=== PATIENT | female | born 1950 | race Caucasian/White ===

== ENCOUNTER → 2017-12-27 | Outpatient (CLI) | payer OTHER ==
[~2017-12-27] MED LIST: PERFLUTREN PROTEIN-A MICROSPHR 0.22 MG/ML 3 ML VIAL. IV PRN
--- NOTE | 2017-12-27 12:01 | CARD ---
MR#: [id number] Date of Study: 12/27/2017 Ordering Physician: LETTY FAROOQ, Referring Physician: LETTY FAROOQ, Tech: KRYSTYNA Smith APPROVED REPORT EXAM: Two-dimensional and M-mode echocardiogram with Doppler and color Doppler. Other Information Quality : FairHR: 74bpm Technically limited study due to body habitus. INDICATION Non-ischemic cardiomyopathy 2D DIMENSIONS RVDd2.9 (2.9-3.5cm)Left Atrium(2D)3.0 (1.6-4.0cm) IVSd0.8 (0.7-1.1cm)Aortic Root(2D)2.4 (2.0-3.7cm) LVDd4.7 (3.9-5.9cm)LVOT Diameter1.9 (1.8-2.4cm) PWd0.9 (0.7-1.1cm)IVSs1.0 (0.8-1.2cm) LVDs3.6 (2.5-4.0cm)FS (%) 25.0 % PWs1.2 (0.8-1.2cm)SV49.8 ml LVEF(%)50.0 (>50%) Aortic Valve AoV Peak Burt.150.9cm/sAoV VTI36.2cm AO Peak GR.9.1mmHgLVOT Peak Burt.81.1cm/s LVOT VTI 20.18cmAO Mean GR.5mmHg JASMYNE (VMAX)1.09gr7UNA (VTI)1.66cm2 Mitral Valve MV E Fjrfsxad34.1cm/sMV DECEL DPGH089ev MV A Ahwuwfmw20.6cm/sMV WPS35cf E/A Ratio0.8MVA (PHT)3.55cm2 TDI E/Lateral E'8.0E/Medial E'8.7 Pulmonary Valve PV Peak Jcssporg669.0cm/sPV Peak Grad.5mmHg Tricuspid Valve TR P. Iqirqkxt853pd/sRAP RRRLZERZ3zwFm TR Peak Gr.41tnEeTPDJ89pmFz Pulmonary Vein S1 Pffjluue59.7cm/sD2 Ljstpovf99.0cm/s LEFT VENTRICLE The left ventricle is normal size. There is normal left ventricular wall thickness. Left ventricle sy stolic function is low normal. The Ejection Fraction is 50-55%. Septal motion consistent with pacing. Mild lateral wall hypokinesis. Transmitral Doppler flow pattern is Grade I-abnormal relaxation patte rn. RIGHT VENTRICLE The right ventricle is normal size. The right ventricular systolic function is normal. ATRIA The left atrium size is normal. The right atrium size is normal. The interatrial septum is intact wit h no evidence for an atrial septal defect or patent foramen ovale as noted on 2-D or Doppler imaging. AORTIC VALVE The aortic valve is not well visualized. Doppler and Color Flow revealed no significant aortic regurg itation. There is no significant aortic valvular stenosis. There is no aortic valvular vegetation. MITRAL VALVE The mitral valve is thickened but opens well. There is no evidence of mitral valve prolapse. There is no mitral valve stenosis. Doppler and Color Flow revealed no mitral valve regurgitation noted. TRICUSPID VALVE The tricuspid valve is normal in structure. Doppler and Color Flow revealed mild tricuspid regurgitat ion. There is no pulmonary hypertension. The PA pressure was estimated at 23 mmHg. There is no tricus pid valve prolapse or vegetation. There is no tricuspid valve stenosis. PULMONIC VALVE The pulmonic valve is not well visualized. Doppler and Color Flow revealed no pulmonic valvular regur gitation. There is no pulmonic valvular stenosis. GREAT VESSELS The aortic root is normal in size. The IVC is normal in size and collapses >50% with inspiration. PERICARDIAL EFFUSION There is no pleural effusion. There is no evidence of significant pericardial effusion. Critical Notification Critical Value: No <Conclusion> Left ventricle systolic function is low normal. The Ejection Fraction is 50-55%. Septal motion consistent with pacing. Mild lateral wall hypokinesis. Signed by : Letty Farooq, Electronically Approved : 12/27/2017 12:00:21
== END | disposition home or self-care (01) ==
LOC: ECHO 10:48
PROVIDERS: ATTEND Internal Medicine Cardiovascular Disease
DX: I07.1 Rheumatic tricuspid insufficiency (principal); I42.8 Other cardiomyopathies
CPT/HCPCS: 93306

== ENCOUNTER 2019-01-30 12:48 | Emergency (ER) | payer OTHER ==
[~2019-01-30] VITALS: Ht 170.2 cm; Wt 56.2 kg
[2019-01-30 13:28] VITALS: BP 167/72
--- NOTE | 2019-01-30 14:24 | PHYS DOC ---
Past Medical History Past Medical History: Hypertension, Other Additional Past Medical Histor: cardiomyopathy (ISAI HOPKINS APRN) Past Surgical History: No Surgical History, Cholecystectomy (ISAI HOPKINS APRN) Additional Information: 1/ppd Alcohol Use: Rarely Drug Use: None (ISAI HOPKINS APRN) Adult General Chief Complaint Chief Complaint: BACK PAIN OR INJURY HPI HPI Patient is a 68 year old female with history of hypertension who presents to the ED today complaining of 10 out of 10 sharp intermittent left low back pain nonradiating in nature that began today when she slipped and fell stepping out of the bathtub. Patient denies any pain radiating to bilateral lower extremities. Denies any loss of bowel bladder function. Denies any numbness or tingling to bilateral lower extremities. She states she was able to ambulate after falling and has been pain-free until this afternoon. (ISAI HOPKINS APRN) Review of Systems Review of Systems Constitutional: Denies fever or chills [] GI: Denies abdominal pain, nausea, vomiting, bloody stools or diarrhea [] : Denies dysuria or hematuria [] Musculoskeletal: left low back pain Integument: Denies rash or skin lesions [] Neurologic: Denies headache, focal weakness or sensory changes [] All other systems were reviewed and found to be within normal limits, except as documented in this note. (ISAI HOPKINS APRN) Current Medications Current Medications Current Medications Medications (Trade) Dose Ordered Sig/Carmella Start Time Stop Time Status Last Admin Dose Admin Fentanyl Citrate (Fentanyl 2ml Vial) 50 mcg 1X ONCE 01/30/19 15:15 01/30/19 15:16 DC 01/30/19 15:18 50 MCG Ondansetron HCl (Zofran Odt) 4 mg 1X ONCE 01/30/19 15:45 01/30/19 15:46 DC 01/30/19 15:58 4 MG (TIANA AQUINO MD) Allergies Allergies Allergies Coded Allergies Type Severity Reaction Last Updated Verified codeine Adverse Reaction Intermediate 01/30/19 Yes tramadol Adverse Reaction Intermediate 01/30/19 Yes (TIANA AQUINO MD) Physical Exam Physical Exam Constitutional: Well developed, well nourished, no acute distress, non-toxic appearance. [] Abdomen: Bowel sounds normal, soft, no tenderness, no masses, no pulsatile masses. [] Skin: Warm, dry, no erythema, no rash. [] Back: Diffuse paraspinal muscle tenderness the left lumbar spine, no midline lumbar spine tenderness, no CVA tenderness. [] Extremities: No tenderness, no cyanosis, no clubbing, ROM intact, no edema. [] Neurologic: Alert and oriented X 3, normal motor function, normal sensory function, no focal deficits noted. [] Psychologic: Affect normal, judgement normal, mood normal. [] (ISAI HOPKINS APRN) Current Patient Data Vital Signs Vital Signs Date Time Temp Pulse Resp B/P (MAP) Pulse Ox O2 Delivery O2 Flow Rate FiO2 01/30/19 15:18 Room Air 01/30/19 13:28 97.5 73 18 167/72 (103) 94 97.5 (TIANA AQUINO MD) EKG EKG [] (ISAI HOPKINS APRN) Radiology/Procedures Radiology/Procedures []PROCEDURE: LUMBAR SPINE 2-3V EXAM: AP, lateral and lumbosacral spot views of the lumbar spine DATE: 01/30/2019 1:43 PM INDICATION: Low back pain since the shower COMPARISON: No Prior FINDINGS: For the purposes of this report, there are 5 nonrib-bearing lumbar vertebral bodies. There is approximately 25 percent height loss of the T12 vertebral body, consistent with age-indeterminate fracture. Diffusely decreased bone mineral density. Advanced facet degenerative changes are seen. Mild disc height loss at T12-L1, L1-L2 and L5-S1. Mild straightening of the normal lumbar lordosis. Atherosclerotic vascular calcifications are seen. Right upper quadrant cholecystectomy clips are seen. IMPRESSION: 1. Approximately 25 percent height loss of the T12 vertebral body consistent with age-indeterminate fracture. MRI can be utilized to further age fracture if clinically indicated. Electronically signed by: Marco Oliver MD (01/30/2019 2:42 PM) [facility] DICTATED and SIGNED BY: MARCO OLIVER MD DATE: 01/30/19 1442 PROCEDURE: CT THORACIC SPINE WO CONTRAST EXAM: CT THORACIC SPINE WITHOUT CONTRAST CLINICAL HISTORY:Fall, low back pain COMPARISON: None available. TECHNIQUE: Helical CT of the thoracic spine was performed and axial, coronal and sagittal reformatted images were generated. PQRS compliance statement - One or more of the following individualized dose reduction techniques were utilized for this study: 1. Automated exposure control 2. Adjustment of the mA and/or kV according to patient size 3. Use of iterative reconstruction technique FINDINGS: There is approximately 25 percent height loss of the T12 vertebral body. Lucencies are seen through the vertebral body consistent with likely acute fracture planes. Diffusely decreased bone mineral density. Multilevel Schmorl's nodes are seen. Mild to moderate disc height loss at multiple levels particularly at the mid thoracic spine. No spondylolisthesis. Emphysematous changes are seen. A 4 mm lung nodule seen in the left lower lobe (series 3 image 54). Aortic calcifications are seen. Pacer leads are noted. Right upper pole nonobstructing renal calculi versus vascular calcifications are seen. IMPRESSION: T12 compression fracture, with approximately 25 percent height loss, likely acute given acute appearing fracture planes. EXAM: CT lumbar spine without IV contrast CLINICAL HISTORY:Low back pain, fall COMPARISON: None available. TECHNIQUE: Helical CT was performed through the lumbar spine. Axial, coronal and sagittal reformatted images were generated. PQRS compliance statement - One or more of the following individualized dose reduction techniques were utilized for this study: 1. Automated exposure control 2. Adjustment of the mA and/or kV according to patient size 3. Use of iterative reconstruction technique FINDINGS: T12 compression fracture as described above the thoracic spine section. Marked osteopenia. Vertebral body heights are otherwise preserved. Mild L4-5 disc height loss. Mild to moderate L2-3 disc height loss. No spondylolisthesis. Atherosclerotic vascular calcifications are seen. Suspected nonobstructing right upper pole renal calculus or vascular calcifications. Bladder is markedly distended, only partially visualized. This can be correlated for possible voluntary or involuntary causes of urinary retention. Right adnexal cystic structure is seen, measuring 3 cm. Moderate colonic stool content. IMPRESSION: 1. T12 compression fracture as described above the thoracic spine report. 2. No definite lumbar fracture. 3. Bladder is markedly distended, only partially visualized. This can be correlated for possible voluntary or involuntary causes of urinary retention 4. Suspected nonobstructing right upper pole renal calculus or vascular calcifications, only partially visualized. 5. Right adnexal cystic structure, can be further assessed by pelvic ultrasound as clinically indicated. 6. Moderate colonic stool content Electronically signed by: Marco Oliver MD (01/30/2019 4:09 PM) [facility] (ISAI HOPKINS APRN) Course & Med Decision Making Course & Med Decision Making Pertinent Labs and Imaging studies reviewed. (See chart for details) This is a 68-year-old female patient presents to the ED today with low back pain after slipping and falling in the bathtub. Patient has no cauda equina syndrome symptoms. Lumbar spine x-rays interpreted by radiologist were noted for possible to 12 compression fracture, CT of the lumbar and thoracic spine were obtained, CTs were noted for a T12 compression fracture with approximately 25% height loss. Spoke with Collette RATLIFF for the neurosurgery, she requested we d ischarge patient to home and she can follow-up with Dr. Medina, or PCP or Dr. Nathan. Patient has been able to get up and ambulate in the ED. She was able to go to the bathroom and voided with no issues. She was discharged to home. She was provided return precautions. (ISAI HOPKINS APRN) Dragon Disclaimer Dragon Disclaimer This electronic medical record was generated, in whole or in part, using a voice recognition dictation system. (ISAI HOPKINS APRN) Departure Departure Impression: Primary Impression: T12 compression fracture Additional Impression: Fall Disposition: 01 HOME, SELF-CARE Condition: STABLE Referrals: AWILDA HANSEN MD (PCP) follow up next week STEPHANIE NATHAN MD follow up next week Patient Instructions: Back, Compression Fracture Additional Instructions: You have T12 compression fracture. Take the prescribed pain medicine as needed for pain. Follow-up with your doctor as well as the provided specialist next week. Come back to the ED at any point symptoms worsen. Scripts Ondansetron (ONDANSETRON ODT) 4 Mg Tab.rapdis 1 TAB PO PRN Q6-8HRS, #16 TAB Prov: ISAI HOPKINS APRN 01/30/19 Hydrocodone/Apap 5-325 (NORCO 5-325 TABLET) 1 Each Tablet 1 TAB PO Q6HRS, #20 TAB Prov: ISAI HOPKINS APRN 01/30/19 Attending Signature I have participated in the care of this patient and I have reviewed and agree with all pertinent clinical information above including history, exam, and recommendations. (TIANA AQUINO MD) Problem Qualifiers Primary Impression: T12 compression fracture Encounter type: initial encounter Qualified Codes: S22.080A - Wedge compression fracture of t11-T12 vertebra, initial encounter for closed fracture Additional Impression: Fall Encounter type: initial encounter Qualified Codes: W19.XXXA - Unspecified fall, initial encounter ISAI HOPKINS APRN Jan 30, 2019 14:24 TIANA AQUINO MD Jan 30, 2019 17:59
--- NOTE | 2019-01-30 14:44 | RAD ---
EXAM: AP, lateral and lumbosacral spot views of the lumbar spine DATE: 01/30/2019 1:43 PM INDICATION: Low back pain since the shower COMPARISON: No Prior FINDINGS: For the purposes of this report, there are 5 nonrib-bearing lumbar vertebral bodies. There is approximately 25 percent height loss of the T12 vertebral body, consistent with age-indeterminate fracture. Diffusely decreased bone mineral density. Advanced facet degenerative changes are seen. Mild disc height loss at T12-L1, L1-L2 and L5-S1. Mild straightening of the normal lumbar lordosis. Atherosclerotic vascular calcifications are seen. Right upper quadrant cholecystectomy clips are seen. IMPRESSION: 1. Approximately 25 percent height loss of the T12 vertebral body consistent with age-indeterminate fracture. MRI can be utilized to further age fracture if clinically indicated. Electronically signed by: Marco Umaña MD (01/30/2019 2:42 PM) [facility]
[2019-01-30] MEDS ORDERED: fentaNYL PF VIAL 100 MCG/2 ML VIAL IM ONE (15:15)
[2019-01-30] MEDS ORDERED: ONDANSETRON ODT 4 MG TAB.RAPDIS. PO ONE (15:45)
--- NOTE | 2019-01-30 16:12 | RAD ---
EXAM: CT THORACIC SPINE WITHOUT CONTRAST CLINICAL HISTORY:Fall, low back pain COMPARISON: None available. TECHNIQUE: Helical CT of the thoracic spine was performed and axial, coronal and sagittal reformatted images were generated. PQRS compliance statement - One or more of the following individualized dose reduction techniques were utilized for this study: 1. Automated exposure control 2. Adjustment of the mA and/or kV according to patient size 3. Use of iterative reconstruction technique FINDINGS: There is approximately 25 percent height loss of the T12 vertebral body. Lucencies are seen through the vertebral body consistent with likely acute fracture planes. Diffusely decreased bone mineral density. Multilevel Schmorl's nodes are seen. Mild to moderate disc height loss at multiple levels particularly at the mid thoracic spine. No spondylolisthesis. Emphysematous changes are seen. A 4 mm lung nodule seen in the left lower lobe (series 3 image 54). Aortic calcifications are seen. Pacer leads are noted. Right upper pole nonobstructing renal calculi versus vascular calcifications are seen. IMPRESSION: T12 compression fracture, with approximately 25 percent height loss, likely acute given acute appearing fracture planes. EXAM: CT lumbar spine without IV contrast CLINICAL HISTORY:Low back pain, fall COMPARISON: None available. TECHNIQUE: Helical CT was performed through the lumbar spine. Axial, coronal and sagittal reformatted images were generated. PQRS compliance statement - One or more of the following individualized dose reduction techniques were utilized for this study: 1. Automated exposure control 2. Adjustment of the mA and/or kV according to patient size 3. Use of iterative reconstruction technique FINDINGS: T12 compression fracture as described above the thoracic spine section. Marked osteopenia. Vertebral body heights are otherwise preserved. Mild L4-5 disc height loss. Mild to moderate L2-3 disc height loss. No spondylolisthesis. Atherosclerotic vascular calcifications are seen. Suspected nonobstructing right upper pole renal calculus or vascular calcifications. Bladder is markedly distended, only partially visualized. This can be correlated for possible voluntary or involuntary causes of urinary retention. Right adnexal cystic structure is seen, measuring 3 cm. Moderate colonic stool content. IMPRESSION: 1. T12 compression fracture as described above the thoracic spine report. 2. No definite lumbar fracture. 3. Bladder is markedly distended, only partially visualized. This can be correlated for possible voluntary or involuntary causes of urinary retention 4. Suspected nonobstructing right upper pole renal calculus or vascular calcifications, only partially visualized. 5. Right adnexal cystic structure, can be further assessed by pelvic ultrasound as clinically indicated. 6. Moderate colonic stool content Electronically signed by: Marco Umaña MD (01/30/2019 4:09 PM) [facility]
[2019-01-30] MEDS ORDERED: HYDR-3164 PO (17:05)
[2019-01-30] MEDS ORDERED: ONDA4TAB12 PO (17:05)
== END 2019-01-30 17:09 | disposition home or self-care (01) ==
LOC: ER 12:48
DX: S22.080A Wedge compression fracture of T11-T12 vertebra, initial encounter for closed fracture (principal); I10 Essential (primary) hypertension; F17.200 Nicotine dependence, unspecified, uncomplicated; Z90.49 Acquired absence of other specified parts of digestive tract; Z88.5 Allergy status to narcotic agent; W18.2XXA Fall in (into) shower or empty bathtub, initial encounter; Y93.89 Activity, other specified; Y92.89 Other specified places as the place of occurrence of the external cause; Y99.8 Other external cause status
CPT/HCPCS: 72100; 72128; 72131; 96372; 99284; J3010; Q0162; 99285

== ENCOUNTER → 2019-04-20 | Outpatient (CLI) | payer OTHER ==
[~2019-04-20] MED LIST changes: +HYDR-3164 PO; +ONDA4TAB12 PO; -PERFLUTREN PROTEIN-A MICROSPHR 0.22 MG/ML 3 ML VIAL. IV PRN
--- NOTE | 2019-04-20 17:37 | RAD ---
CT THORACIC SPINE WO CONTRAST, CT LUMBAR SPINE WO CONTRAST Date: 04/20/2019 10:30 AM Indication: Midline back pain Comparison: 01/30/2019. Technique: Helical CT images of the thoracic and lumbar spine were obtained without contrast. Coronal and sagittal reformatted images were also performed. One or more of the following dose reduction techniques were utilized: Automated exposure control (AEC), Adjustment of mA and/or kV according to patient size, Use of iterative reconstruction technique such as ASiR, CT scan done according to ALARA and image gently/image wisely. Findings: T12 compression deformity with 80% loss of vertebral body height and changes of interval vertebral augmentation. Osseous retropulsion with mild to moderate spinal canal narrowing. No new compression deformities. No new compression deformities. Focal kyphosis centered at T12. Mild to moderate multilevel degenerative disc space height loss. Multilevel mild to moderate spinal canal stenosis secondary to multilevel disc bulging and facet arthrosis. Multilevel mild and moderate neuroforaminal narrowing. Multilevel mild and moderate facet arthrosis. Diffuse aortoiliac atherosclerotic disease. IMPRESSION: T12 compression deformity with progressive height loss and changes of interval vertebral augmentation. No new compression deformities. Electronically signed by: Angel Barlow MD (04/20/2019 5:34 PM) [facility]
== END | disposition home or self-care (01) ==
LOC: CT 10:12
PROVIDERS: ATTEND Internal Medicine
DX: M51.24 Other intervertebral disc displacement, thoracic region (principal); M47.814 Spondylosis without myelopathy or radiculopathy, thoracic region; M48.04 Spinal stenosis, thoracic region; M40.294 Other kyphosis, thoracic region; I70.8 Atherosclerosis of other arteries
CPT/HCPCS: 72128; 72131

== ENCOUNTER → 2019-06-08 | Outpatient (CLI) | payer MEDICARE, OTHER ==
--- NOTE | 2019-06-08 13:35 | RAD ---
Limited bone scan over the abdomen and pelvis compared to CT scan of the lumbar spine dated April 20, 2019 for history of vertebroplasty in January 2019, low back pain since then. TECHNIQUE AND FINDINGS: Following administration of 25 mCi of technetium 99 MDP, planar anterior posterior and right and left lateral images of the axial skeleton centered on the thoracal lumbar junction are obtained. There is avid radiotracer accumulation in the right and left lateral aspects posteriorly at the level of T12. This may reflect facet arthrosis or fractures involving the pedicles. No vertebral body accumulation is identified to suggest recurrent or acute vertebral body compression fracture. No other suspicious areas of radiotracer activity are identified. There is a focal region of photopenia in the left anterior chest at the level of the pacemaker. There is normal soft tissue distribution of radiotracer. IMPRESSION: 1. Abnormal activity in the posterior lateral aspects of the T12 level. This may reflect activity associated with acute or unhealed fractures at or near the bilateral T12 pedicles, but could also be seen with advanced facet arthrosis. Given the absence of facet arthrosis at other levels, and a history of prior vertebral body fracture at this level however, the former is favored. Electronically signed by: Zach Mcleod MD (06/08/2019 1:32 PM) [facility]
== END | disposition home or self-care (01) ==
LOC: NM 09:01
PROVIDERS: ATTEND Neurological Surgery
DX: M54.5 Low back pain (principal); Z95.0 Presence of cardiac pacemaker
CPT/HCPCS: 78300; A9503

== ENCOUNTER → 2019-06-23 | Outpatient (CLI) | payer MEDICARE ==
[~2019-06-23] MED LIST changes: +AMLO10TA8 PO; +ASPI81TA59 PO; +BUPIVACAINE MPF 0.25% 10 ML VIAL. ONE; +CALC500T54 PO; +CARV25TA2 PO; +CETI10TA24 PO; +CHOL400T14 PO; +CYCL5TAB PO; +HYDR-2869 PO; +LOSA100T14 PO; +OMEG1CAP27 PO; +SIMV40TA18 PO; +methylPREDNISolone ACETATE 40 MG/ML VIAL. ONE; +presservision EACHEYE; +prevagen PO
--- NOTE | 2019-06-24 00:55 | PAIN ---
DATE OF SERVICE: 06/23/2019 INITIAL CONSULTATION FOR PAIN CLINIC CHIEF COMPLAINT: Low back pain. HISTORY OF PRESENT ILLNESS: This is a 69-year-old female who presents with history of pain in the low back, especially on the right side, but present bilaterally since a fall in 01/2019. The patient reports she tripped and fell, did not have to assess any significant back pain prior to that. She has been going through some therapy, did some stretching and strength exercises, which were not significantly helpful, eventually was referred to Neurosurgery with a limited bone scan performed of the low back and a CT scan showing facet arthropathy of the lower lumbar spine with good alignment. Bone scan showing no abnormal uptake other than some unhealed acute fractures near the bilateral T12 pedicles, but could be facet arthrosis. The patient reports significant pain with walking, standing, changing positions, better with sitting or lying down, does not awaken her from sleep at night. She sleeps well, does not disturb her, but when she is walking or standing for more than about 10-15 minutes, the pain becomes significantly worse. She finds herself hunching forward and leaning over grocery carts and holding on to her when she is ambulating. The patient reports it does not affect her bowel or bladder control, but does affect her ability to walk, however, but she is not using any assistive devices to hold on to besides her . The patient rates her disability from 0-10, 10 being worst, is a 10 in all categories, family home responsibilities, recreation, occupation, social activity, sexual behavior, self-care and life support activities. The patient has been taking cyclobenzaprine, which does decrease the pain, she states once in the morning, sometimes twice a day, does not cause any drowsiness and she is doing quite a bit better with that, but still having significant pain with ambulation. The patient describes the pain as constant, sharp, stabbing, throbbing across the low back, worse with extension of the lumbar spine, better with forward flexion and worse with right and left lateral rotation or repetitive motions, lifting or bending, stooping, and getting up from a seated position can be uncomfortable as well. PAST MEDICAL HISTORY: Significant for cardiomyopathy, osteoporosis, cigarette smoking, still smokes 1 pack a day for the past 40 years. PREVIOUS SURGERIES: Include cholecystectomy and pacemaker placement in 2008 and battery changed in 2013. CURRENT MEDICATIONS: Include Prevagen, eyedrops, fish oil, vitamin D, daily baby aspirin, calcium, simvastatin, amlodipine, Zyrtec, losartan, cyclobenzaprine, carvedilol and hydralazine. ALLERGIES: THE PATIENT IS ALLERGIC TO TRAMADOL, CODEINE, AND PENICILLIN. FAMILY HISTORY: Significant for no major medical problems or conditions that she lists. SOCIAL HISTORY: The patient drinks about 2 alcoholic beers a month on average. Does not use any illegal, illicit or recreational drugs, does smoke 1 pack of cigarettes, has for the past 40 years. She is and lives with her spouse, lives locally in [place], [place]. Reports she is currently retired. REVIEW OF SYSTEMS: The patient's review of systems is positive for those items mentioned in history of present illness. All systems reviewed and otherwise negative. It is complete, full and well documented on the patient's chart. PHYSICAL EXAMINATION: VITAL SIGNS: The patient's blood pressure is 124/61, pulse 74, respirations 18, temperature 98.2 degrees Fahrenheit. Height is 5 feet 7 inches, weighs 116 pounds. GENERAL: The patient is awake, alert, oriented, appropriate, very pleasant demeanor. HEENT: Head shows normocephalic, atraumatic. Extraocular movements are intact and symmetrical. Oral cavity: Mucous membranes moist and pink. Dentition is intact. NECK: Shows anterior throat supple without palpable lymphadenopathy noted. Swallow reflex symmetrical. CHEST: Shows normal on inspection. Breath sounds are clear bilaterally. HEART: Shows S1, S2 clear. No murmurs auscultated. ABDOMEN: Soft, nontender, nondistended. No palpable organomegaly is noted. No rebound or guarding demonstrated. BACK: Shows spine grossly in the midline. Normal appearing thoracic kyphosis and some minor flattening of lumbar lordotic curvature. Lumbar paraspinous muscle shows symmetrical on inspection, on palpation shows some moderate tenderness diffusely bilaterally, but only diffusely without significant radiation. The patient has good rotational motion of lumbar spine, but with significant tenderness, somewhat greater right than the left rotation with lumbar spine. There is significant tenderness across both right and left low back with extension of the lumbar spine and axial loading of the lumbar spine. This is much better with forward flexion at 45 degrees, which decreases the pain and almost relieved it completely. EXTREMITIES: The patient's lower extremities show deep tendon reflexes at 2+ in the patellar, 1+ tendo-calcaneus tendons. Motor exam is strong with 5/5 dorsiflexion, extension, quadriceps and hamstring flexion is symmetrical. Peripheral pulses are 1+ posterior tibia. No peripheral edema is noted bilaterally. The patient's lower extremities are warm and dry to touch, equal in color and appearance. Peripheral pulses are with 1+ posterior tibia. No peripheral edema is noted. They are warm and dry, equal color and appearance. Straight leg raising noted to be negative for reproduction of radicular symptoms. Gaenslen's and Ashok's maneuvers are negative bilaterally as well. The patient is able to stand, stand on her toes without significant difficulty or loss of balance, is walking with a significant shuffling gait, appears to favor the right lower extremity compared to the left. Again, not using any assistive devices to ambulate. SKIN: Shows warm and dry, good turgor. No edema. No sores, rashes or bruising throughout. The patient does have some mottled change; however, on the skin over the lumbar spine from previous heating pad use. IMPRESSION: 1. This is a 69-year-old female with approximate 5-month history status post fall with pain in the low back, right greater than left, consistent with facet arthrosis, facet syndrome and facetmediated pain. 2. Cigarette smoking. 3. Osteoporosis. 4. History of cardiomyopathy with pacemaker placement. PLAN: Options were discussed with the patient including conservative medical managements, physical therapies and interventional techniques. She is still doing the physical therapy exercises with and she is interested in interventional techniques. We discussed lumbar facet injection as well as trigger point injections. We will proceed with trigger point injection today, have patient preauthorized for facet joint injections per her insurance provider as she does have significant axial pain and axial loading pain with extension of the lumbar spine bilaterally in the low back, but without radiation to the lower extremities. Today, we will plan on lumbar paraspinous musculature trigger point injections as he has very firm rope-like musculature in both the right and left lumbar paraspinous musculature throughout the upper, middle and lower distribution. Risks were discussed including but not limited to bleeding, infection, possibility of intravascular injection sequelae, spread of local anesthetic and numbness, side effects of steroid medication and poor results regarding pain control. The patient understands and wished to proceed. The patient will return to clinic again after preauthorization for bilateral L4-L5 and L5-S1 facet joint injections. DIAGNOSIS: Lumbar and lumbosacral spondylosis with myofascial pain. PROCEDURE: Trigger point injections, bilateral lumbar paraspinous musculature, upper, middle and lower distribution under sterile prep and drape using local anesthetic. MEDICATION INJECTED: A total of 40 mg Depo-Medrol plus a total of 8 mL of 0.25% bupivacaine after negative aspiration at each injection site. CONDITION AT DISCHARGE: Stable. The patient tolerated the procedure well, had no complications. IGOR SÁNCHEZ MD DR: JORGE/vinod JOB#: [id number] / [id number] AWILDA Ty MD
== END ==
LOC: PNCL 13:39
PROVIDERS: ATTEND Anesthesiology
DX: M79.18 Myalgia, other site (principal); M47.817 Spondylosis without myelopathy or radiculopathy, lumbosacral region; F17.210 Nicotine dependence, cigarettes, uncomplicated; Z87.39 Personal history of other diseases of the musculoskeletal system and connective tissue; Z90.49 Acquired absence of other specified parts of digestive tract; Z95.0 Presence of cardiac pacemaker; Z72.89 Other problems related to lifestyle
CPT/HCPCS: 20553; J1030; J3490

== ENCOUNTER → 2019-07-06 | Outpatient (CLI) | payer MEDICARE ==
[~2019-07-06] MED LIST changes: +IOHEXOL 180 MG/ML 10 ML VIAL. ONE; +methylPREDNISolone ACETATE 80 MG/ML VIAL. ONE
--- NOTE | 2019-07-06 13:12 | PAIN ---
DATE OF SERVICE: 07/06/2019 PROGRESS NOTE FOR PAIN CLINIC DIAGNOSES: 1. Lumbar and lumbosacral spondylosis. 2. Myofascial pain. HISTORY OF PRESENT ILLNESS: The patient is a 69-year-old female who returns for followup status post trigger point injections after initial evaluation and preauthorization for bilateral lumbar facet joint injections. The patient reports still significant pain in the low back with walking, standing, and changing positions, especially getting up from a seated position and extension of the lumbar spine arching the back. The patient reports it is a 9 on a scale of 10 at all times over the past week, 9 on average, worst, and least, and is a 9 today. The patient reports it is aching and sharp across the low back without radiation to lower extremities. The patient reports it is better with sitting or lying down, but when she goes to change positions, the pain returns significantly. The patient reports it does not awaken her from sleep. She is sleeping well at night. No new motor or sensory deficits. No new bowel or bladder incontinence. PHYSICAL EXAMINATION: VITAL SIGNS: The patient's blood pressure is 146/72, pulse 73, respirations 16, temperature is 97.4 degrees Fahrenheit, height is 63 inches, and weight is 114 pounds. GENERAL: The patient is awake, alert, oriented, and appropriate. Very pleasant demeanor. HEENT: Head is normocephalic and atraumatic. Extraocular movements are intact and symmetrical. Oral cavity, mucous membranes are moist and pink. Dentition is intact. NECK: Anterior throat supple without palpable lymphadenopathy noted. Swallow reflex symmetrical. CHEST: Normal on inspection. Breath sounds are clear bilaterally. HEART: S1, S2 clear. No murmurs auscultated. ABDOMEN: Soft, nontender, and nondistended. BACK: Spine grossly in the midline, slight exaggerated thoracic kyphosis, and minor flattening of lumbar lordotic curvature. Lumbar paraspinous muscle shows symmetrical on inspection and with palpation shows some moderate tenderness diffusely throughout the middle and lower distribution of paraspinous muscles bilaterally. The patient also has some discoloration from heating pad use on the skin as well. The patient shows good rotational motion with significant pain with right and left lateral rotation past 10 degrees and extension to 10 degrees. Very significant pain across the low back without radiation, this is better but not completely relieved with forward flexion at 45 degrees. EXTREMITIES: Lower extremities show deep tendon reflexes at 2+ in the patellar and 1+ tendo-calcaneus tendons. Motor exam is strong with 5/5 dorsiflexion, extension, and equal. Peripheral pulses are 1+ posterior tibia. No peripheral edema is noted bilaterally. Options were discussed with the patient. The patient's old chart was reviewed. Her current medication regimen updated. Current review of systems updated today as well. We will proceed with bilateral L4-L5 and L5-S1 facet joint injections today with fluoroscopic guidance. Risks were again discussed including but not limited to bleeding, infection, possibility of epidural hematoma, subsequent neurological compromise, dural puncture, headaches, spinal cord and/or nerve damage, side effects of steroid medication, and poor results regarding pain control. The patient understands and wished to proceed. The patient will return to clinic in approximately 2 weeks for followup. She was counseled on return appointment, activity level, and side effects to be aware of. DIAGNOSIS: Lumbar and lumbosacral spondylosis. PROCEDURE: Bilateral L4-L5 and L5-S1 facet joint injections using C-arm fluoroscopic guidance under sterile prep and drape using local anesthetic. MEDICATIONS INJECTED: A total of 120 mg of Depo-Medrol plus 4 mL of 0.25% bupivacaine and 2 mL total of contrast. CONDITION AT DISCHARGE: Stable. The patient tolerated procedure well and had no complications. IGOR SÁNCHEZ MD DR: JORGE/vinod JOB#: [id number] / [id number]
== END ==
LOC: PNCL 11:49
PROVIDERS: ATTEND Anesthesiology
DX: M47.817 Spondylosis without myelopathy or radiculopathy, lumbosacral region (principal); M79.18 Myalgia, other site
CPT/HCPCS: 64635; 64636; J1030; J1040; J3490; Q9965

== ENCOUNTER → 2019-12-18 | Outpatient (CLI) | payer MEDICARE ==
[~2019-12-18] MED LIST changes: -BUPIVACAINE MPF 0.25% 10 ML VIAL. ONE; -IOHEXOL 180 MG/ML 10 ML VIAL. ONE; -methylPREDNISolone ACETATE 40 MG/ML VIAL. ONE; -methylPREDNISolone ACETATE 80 MG/ML VIAL. ONE
--- NOTE | 2019-12-18 11:11 | CARD ---
MR#: [id number] Date of Study: 12/18/2019 Ordering Physician: LETTY FAROOQ, Referring Physician: LETTY FAROOQ, Tech: Claudia MARTINEZ [facility] APPROVED REPORT EXAM: Two-dimensional and M-mode echocardiogram with Doppler and color Doppler. Other Information Quality : AverageHR: 70bpm Rhythm : NSR INDICATION COPD RISK FACTORS Smoking 2D DIMENSIONS RVDd2.6 (2.9-3.5cm)Left Atrium(2D)2.4 (1.6-4.0cm) IVSd0.9 (0.7-1.1cm)Aortic Root(2D)3.1 (2.0-3.7cm) LVDd4.0 (3.9-5.9cm)LVOT Diameter1.8 (1.8-2.4cm) PWd0.9 (0.7-1.1cm)LVDs3.0 (2.5-4.0cm) FS (%) 26.5 %SV37.4 ml LVEF(%)52.3 (>50%) Aortic Valve AoV Peak Burt.117.1cm/sAoV VTI22.8cm AO Peak GR.5.5mmHgLVOT Peak Burt.83.7cm/s AO Mean GR.2mmHgAVA (VMAX)1.87cm2 Mitral Valve MV E Kvaueshs65.8cm/sMV DECEL [id number] MV A Ypoefnav38.9cm/sE/A Ratio0.5 Tricuspid Valve TR P. Gvkbsraw131nk/sTR Peak Gr.25mmHg Pulmonary Vein S1 Djpmswrt69.1cm/sD2 Grizmnnx71.0cm/s PVa [id number] LEFT VENTRICLE The left ventricle is normal size. There is normal left ventricular wall thickness. The left ventricu lar systolic function is normal. The ejection fraction is 55%. There is normal LV segmental wall lang on. The left ventricular diastolic function and filling is normal for age. RIGHT VENTRICLE The right ventricle is normal size. There is normal right ventricular wall thickness. The right ventr icular systolic function is normal. ATRIA The left atrium size is normal. The right atrium size is normal. The interatrial septum is intact wit h no evidence for an atrial septal defect or patent foramen ovale as noted on 2-D or Doppler imaging. AORTIC VALVE The aortic valve is normal in structure and function. Doppler and Color Flow revealed no significant aortic regurgitation. There is no significant aortic valvular stenosis. MITRAL VALVE The mitral valve is normal in structure and function. There is no evidence of mitral valve prolapse. There is no mitral valve stenosis. Doppler and Color Flow revealed no mitral valve regurgitation note d. TRICUSPID VALVE The tricuspid valve is normal in structure and function. Doppler and Color Flow revealed trace tricus pid regurgitation. Estimated PAP 28-30mmHg. PULMONIC VALVE The pulmonary valve is normal in structure and function. Doppler and Color Flow revealed no pulmonic valvular regurgitation. GREAT VESSELS The aortic root is normal in size. The ascending aorta is normal in size. The IVC is normal in size a nd collapses >50% with inspiration. PERICARDIAL EFFUSION There is no evidence of significant pericardial effusion. Critical Notification Critical Value: No <Conclusion> The left ventricular systolic function is normal. The ejection fraction is 55%. There is normal LV segmental wall motion. Trace tricuspid regurgitation with estimated PAP 28-30mmHg. There is no evidence of significant pericardial effusion. Signed by : Dave Castaneda, Electronically Approved : 12/18/2019 11:10:43
== END ==
LOC: ECHO 08:50
PROVIDERS: ATTEND Internal Medicine Cardiovascular Disease
DX: I25.10 Atherosclerotic heart disease of native coronary artery without angina pectoris (principal); R09.89 Other specified symptoms and signs involving the circulatory and respiratory systems
CPT/HCPCS: 93306

== ENCOUNTER → 2020-01-04 | Outpatient (CLI) | payer MEDICARE ==
[~2020-01-04] MED LIST changes: -CETI10TA24 PO; +CETI10TA74 PO
--- NOTE | 2020-01-04 18:04 | RAD ---
MR#: [id number] Date of Study: 01/04/2020 Ordering Physician: LETTY FAROOQ, Referring Physician: LETTY FAROOQ, Tech: Lester Zamora MBA, RDMS, RVT, RDCS, RTR APPROVED REPORT Patient Location: OUT-PATIENT Laterality:Bilateral Indications Bruit Doppler Spectral Velocity Analysis Right Left pCCA 52/9 cm/spCCA 75/13 cm/s mCCA 53/11 cm/smCCA 79/12 cm/s dCCA 49/9 cm/sdCCA 75/15 cm/s Bulb 56/9 cm/sBulb 81/13 cm/s ECA 384/ cm/sECA 510/ cm/s pICA 89/14 cm/spICA 75/12 cm/s Donna 84/12 cm/smICA 86/16 cm/s dICA 96/14 cm/sdICA 94/13 cm/s Vert. 76/ cm/sVert. 49/ cm/s Subcl. 177/ cm/sSubcl. 152/ cm/s ICA/CCA 1.81ICA/CCA 1.25 Findings Grayscale images of the bilateral carotid vessels demonstrates heavy plaque burden at the level of th e carotid bifurcation. Spectral waveforms and color Doppler of the internal carotid artery and commo n carotid artery demonstrate less than 50% stenosis based on velocity criteria. There is likely grea ter then 70% stenosis involving the external carotid arteries bilaterally. No significant vertebral disease is noted. Critical Notification Critical Value: No <Conclusion> 1. No significant internal carotid occlusive disease noted. 2. Bilateral external carotid disease. Signed by : Letty Farooq, Electronically Approved : 01/04/2020 18:04:12
== END | disposition home or self-care (01) ==
LOC: US 10:09
PROVIDERS: ATTEND Internal Medicine Cardiovascular Disease
DX: I65.23 Occlusion and stenosis of bilateral carotid arteries (principal); R09.89 Other specified symptoms and signs involving the circulatory and respiratory systems
CPT/HCPCS: 93880

== ENCOUNTER → 2021-03-21 | Outpatient (CLI) | payer MEDICARE ==
[~2021-03-21] MED LIST changes: +AMLO-187 PO; -AMLO10TA8 PO
[2021-03-21 11:40] LABS: BASO % 1 % (0-3); EOS # 0.1 x10^3/uL (0.0-0.7); EOS % 2 % (0-3); HEMATOCRIT 45.3 % (36.0-47.0); HEMOGLOBIN 15.3 g/dL (12.0-15.5); LYMPH # 2.2 x10^3/uL (1.0-4.8); LYMPH % 29 % (24-48); MEAN CORPUSCULAR HEMOGLOBIN 33 pg (25-35); MEAN CORPUSCULAR HGB CONC 34 g/dL (31-37); MEAN CORPUSCULAR VOLUME 98 fL (79-100); MONO # 0.6 x10^3/uL (0.0-1.1); MONO % 8 % (0-9); NEUT # 4.7 x10^3/uL (1.8-7.7); NEUT % 61 % (31-73); PLATELET COUNT 256 x10^3/uL (140-400); RED BLOOD COUNT 4.63 x10^6/uL (3.50-5.40); RED CELL DISTRIBUTION WIDTH 13.8 % (11.5-14.5); WHITE BLOOD COUNT 7.7 x10^3/uL (4.0-11.0)
[2021-03-21 11:58] LABS: ALBUMIN 4.1 g/dL (3.4-5.0); ALBUMIN/GLOBULIN RATIO 1.1 (1.0-1.7); CALCIUM 9.7 mg/dL (8.5-10.1); CREATININE 0.9 mg/dL (0.6-1.0); GFR 61.4; POTASSIUM 4.1 mmol/L (3.5-5.1); TOTAL BILIRUBIN 0.6 mg/dL (0.2-1.0); TOTAL PROTEIN 7.8 g/dL (6.4-8.2)
[2021-03-21 11:59] LABS: CHOLESTEROL/HDL RATIO 2.4
--- NOTE | 2021-03-21 16:50 | RAD ---
MR#: [id number] Date of Study: 03/21/2021 Ordering Physician: LETTY FAROOQ, Referring Physician: LETTY FAROOQ, Tech: Charlene Caldwell RDMS, RVT, RTR APPROVED REPORT Patient Location: OUT-PATIENT Laterality:Bilateral Indications Bruit Doppler Spectral Velocity Analysis Right Left pCCA 53/9 cm/spCCA 71/13 cm/s mCCA 46/9 cm/smCCA 62/13 cm/s dCCA 60/13 cm/sdCCA 64/15 cm/s ECA 420/34 cm/sECA 685/65 cm/s pICA 102/22 cm/spICA 86/18 cm/s Donna 113/18 cm/smICA 98/20 cm/s dICA 134/27 cm/sdICA 79/14 cm/s Vert. 89/14 cm/sVert. 62/14 cm/s ICA/CCA 2.90ICA/CCA 1.50 Findings Grayscale images of the bilateral carotid vessels demonstrates moderate to severe diffuse atheroscler osis. On the right side there is likely moderate 50 to 69% stenosis based on velocity criteria and ICA to C CA ratios. The vertebral velocities are within normal limits and antegrade. There is likely greater than 70% stenosis involving the external carotid artery. On the left side overall 0 to less than 50% stenosis involving the internal carotid artery. Normal I CA to CCA ratios and antegrade vertebral velocities. Greater than 70% stenosis involving the left ex ternal carotid artery. Critical Notification Critical Value: No <Conclusion> 1. Moderate to severe diffuse atherosclerotic plaque with moderate 50 to 69% stenosis on the right a nd less than 50% stenosis on the left involving the bilateral internal carotid arteries. 2. Severe greater than 70% stenosis involving the bilateral external carotid arteries. Signed by : Letty Farooq, Electronically Approved : 03/21/2021 16:49:30
--- NOTE | 2021-03-22 13:21 | CARD ---
MR#: [id number] Date of Study: 03/21/2021 Ordering Physician: LETTY FAROOQ, Referring Physician: LETTY FAROOQ, Tech: Ev Stout [facility] APPROVED REPORT EXAM: Two-dimensional and M-mode echocardiogram with Doppler and color Doppler. Other Information Quality : AverageHR: 68bpm Rhythm : NSR INDICATION COPD RISK FACTORS Smoking 2D DIMENSIONS Left Atrium(2D)2.5 (1.6-4.0cm)IVSd0.9 (0.7-1.1cm) Aortic Root(2D)2.9 (2.0-3.7cm)LVDd4.1 (3.9-5.9cm) LVOT Diameter1.9 (1.8-2.4cm)PWd0.8 (0.7-1.1cm) LVDs3.4 (2.5-4.0cm)FS (%) 17.5 % SV28.0 ml Aortic Valve AoV Peak Burt.114.6cm/sAoV VTI25.8cm AO Peak GR.5.3mmHgLVOT Peak Burt.81.8cm/s AO Mean GR.3mmHgAVA (VMAX)2.10cm2 Pulmonary Valve PV Peak Ldbjjxmu68.2cm/s Tricuspid Valve TR P. Dyzygwid577ub/sTR Peak Gr.32mmHg LEFT VENTRICLE The left ventricle is normal size. There is normal left ventricular wall thickness. The left ventricu lar systolic function is mildly decreased. LV ejection fraction of 40 to 45%. There is mild global h ypokinesis of the left ventricle. Transmitral Doppler flow pattern is Grade I-abnormal relaxation pat tern. RIGHT VENTRICLE The right ventricle is normal size. There is normal right ventricular wall thickness. The right ventr icular systolic function is normal. ATRIA The left atrium size is normal. The right atrium size is normal. The interatrial septum is intact wit h no evidence for an atrial septal defect or patent foramen ovale as noted on 2-D or Doppler imaging. AORTIC VALVE The aortic valve is normal in structure and function. Doppler and Color Flow revealed no significant aortic regurgitation. There is no significant aortic valvular stenosis. MITRAL VALVE The mitral valve is normal in structure and function. There is no evidence of mitral valve prolapse. There is no mitral valve stenosis. Doppler and Color-flow revealed trace mitral regurgitation. TRICUSPID VALVE The tricuspid valve is normal in structure and function. Doppler and Color Flow revealed mild tricusp id regurgitation. Estimated PAP of 34 mmHg. There is no tricuspid valve stenosis. PULMONIC VALVE The pulmonary valve is normal in structure and function. Doppler and Color Flow revealed no pulmonic valvular regurgitation. GREAT VESSELS The aortic root is normal in size. The ascending aorta is normal in size. The IVC is normal in size a nd collapses >50% with inspiration. PERICARDIAL EFFUSION There is no evidence of significant pericardial effusion. Critical Notification Critical Value: No <Conclusion> The left ventricle is normal size. The left ventricular systolic function is mildly decreased. LV ejection fraction of 40 to 45%. There is mild global hypokinesis of the left ventricle. Doppler and Color Flow revealed no significant aortic regurgitation. There is no significant aortic valvular stenosis. Doppler and Color-flow revealed trace mitral regurgitation. Doppler and Color Flow revealed mild tricuspid regurgitation. Estimated PAP of 34 mmHg. Signed by : Burton Leyva MD Electronically Approved : 03/22/2021 13:21:17
== END ==
LOC: ECHO 09:58
PROVIDERS: ATTEND Internal Medicine Cardiovascular Disease
DX: I07.1 Rheumatic tricuspid insufficiency (principal); I65.23 Occlusion and stenosis of bilateral carotid arteries; I25.10 Atherosclerotic heart disease of native coronary artery without angina pectoris; R09.89 Other specified symptoms and signs involving the circulatory and respiratory systems; J44.9 Chronic obstructive pulmonary disease, unspecified
CPT/HCPCS: 36415; 80053; 80061; 85025; 93306; 93880

== ENCOUNTER → 2021-04-13 | Outpatient (CLI) | payer MEDICARE ==
[~2021-04-13] MED LIST changes: +DONE5TAB7 PO
--- NOTE | 2021-04-13 10:04 | PDOC ---
Progress Note - Pain Clinic Date of Service: DOS: DATE: 04/13/21 TIME: 10:00 Diagnosis: Dx: Lumbar and lumbosacral spondylosis Myofascial pain History or Present Illness: HPI: 71-year-old female returns last seen June 2019 patient underwent lumbar facet medial branch blocks with about 90% improvement for the first 2 to 3 weeks but patient is having a hard time remembering if it came back quickly or what it did since that time is been almost 2 years patient reports he is just been suffering with the pain eventually saw her primary care physician who sent her to be reevaluated patient reports her pain is in the low back bilaterally not radiating to the lower extremities in the low back slightly worse on the left than the right but present bilaterally patient reports an 8 on scale 10 is worst average and least and is an 8 today patient reported aching dull cramping stabbing can be constant and severe with walking and standing especially with standing and extension of the lumbar spine patient reports better with sitting leaning forward patient reports also good with lying down does not awaken her from sleep at night patient has been taking gabapentin as well as cyclobenzaprine which is not helping decrease the pain also is done physical therapy since her last visit and is still doing the exercises involved with these as well. Patient reports no days or have any long-lasting decrease in pain with her low back patient reports no bowel or bladder incontinence but has significant disability with daily activities walking standing changing position specially getting up from a seated position or sitting for longer than 15 to 20 minutes with significant increase in pain as well. Physical Exam: VS: Blood pressure 136/81 pulse 81 respirations 18 temperature 97.2 F is 65 inches weight is 102 pounds. PE: PHYSICAL EXAMINATION: GENERAL: The patient is awake, alert, oriented, appropriate, very pleasant in demeanor patient accompanied by her son. HEENT: Shows normocephalic, atraumatic. Extraocular movements are intact and symmetrical. Oral cavity: Mucous membranes moist and pink. NECK: Shows anterior throat supple without palpable lymphadenopathy noted. Swallow reflex symmetrical. CHEST: Shows normal on inspection. Breath sounds are clear bilaterally, distant but no rales or rhonchi. HEART: Shows S1, S2 clear. No murmurs auscultated. ABDOMEN: Soft, nontender, nondistended, flat. No palpable organomegaly is noted. BACK: Shows spine grossly in the midline. Normal-appearing cervical lordotic curvature. There is slightly increased thoracic kyphosis, some minor flattening of the lumbar lordotic curvature. Lumbar paraspinous muscles show symmetrical on inspection, on palpation shows some moderate tenderness diffusely throughout the upper, middle and lower distribution of the paraspinous muscles without specific trigger points, without radiation of pain. The patient has good rotational motion of the lumbar spine, both laterally as well as extension and flexion significant tenderness with extension of the lumbar spine and axial loading of the low back with bilateral pain better with forward flexion at 45 degrees with the pain is almost completely relieved right and left lateral rotation elicits pain more on the right than the left and present bilaterally at 15 degrees bilaterally. EXTREMITIES: Lower extremities show deep tendon reflexes 2+ in the patellar and tendo calcaneus tendons. Motor exam is 5 on a scale of 5 with right dorsiflexion, extension, quadriceps and hamstring flexion and 5/5 on the left. Peripheral pulses are 1+ posterior tibial. No peripheral edema is noted bilaterally. Lower extremities are warm and dry to touch, equal in color and appearance. SKIN: Shows warm and dry, good turgor. No edema. No sores, rashes or bruising throughout. Procedure: Procedure: Options were discussed with patient. Patient chart was reviewed as her current medication regimen updated current review of systems updated today as well. We will preauthorize patient for bilateral lumbar facet medial branch blocks L4-5 and L5-S1 levels with fluoroscopic guidance. Patient has significant axial pain without radiation to the lower extremities consistent with facet syndrome. Patient is done physical therapy without significant improvement as well as medication management. We did discuss possibility of radiofrequency ablation in the future but will try diagnostic blocks first as scheduled. Patient continue with stretching strength exercises from physical therapy as well as oral analgesics also will add Medrol Dosepak as well as meloxicam once daily with instructions side effects to be aware of discussed use of medications. Patient will follow up we will plan on bilateral L4-5 and L5-S1 medial branch facet blocks with fluoroscopic guidance at that time. Medication Injected: Med Injected: None Condition at Discharge: Condition at Discharge: Condition at discharge is stable. IGOR SÁNCHEZ MD Apr 13, 2021 10:04
== END | disposition home or self-care (01) ==
LOC: PNCL 08:55
PROVIDERS: ATTEND Anesthesiology
DX: M47.817 Spondylosis without myelopathy or radiculopathy, lumbosacral region (principal); M79.18 Myalgia, other site; F17.210 Nicotine dependence, cigarettes, uncomplicated; Z79.82 Long term (current) use of aspirin; Z79.899 Other long term (current) drug therapy; Z72.89 Other problems related to lifestyle; Z88.0 Allergy status to penicillin; Z88.5 Allergy status to narcotic agent; Z88.8 Allergy status to other drugs, medicaments and biological substances
CPT/HCPCS: 99212; G0463

== ENCOUNTER → 2021-04-27 | Outpatient (CLI) | payer MEDICARE ==
[~2021-04-27] MED LIST changes: +BUPIVACAINE MPF 0.25% 10 ML VIAL. ONE; +IOHEXOL 180 MG/ML 10 ML VIAL. ONE; +methylPREDNISolone ACETATE 40 MG/ML VIAL. ONE; +methylPREDNISolone ACETATE 80 MG/ML VIAL. ONE
--- NOTE | 2021-04-27 12:02 | PDOC ---
Progress Note - Pain Clinic Date of Service: DOS: DATE: 04/27/21 TIME: 11:59 Diagnosis: Dx: Lumbar and lumbosacral spondylosis Myofascial pain History or Present Illness: HPI: 71-year-old female returns status post lumbar facet injections most recently June 2019 patient did very well with about 80% improvement for several weeks patient reports the pain is returning now in the low back and left slightly greater than right with walking standing change position especially prolonged sitting or prolonged standing more than even 10 to 15 minutes patient reports with getting up from a seated position is very tender in the low back rates it as an 8 on scale 10 is worst average and least is an 8 today. Pain scribes as aching and dull in the back no radiation to the lower extremities but in the back itself again slightly worse on the left than the right but present bilaterally with activity movements and especially extension of the lumbar spine. Patient reports no bowel or bladder incontinence. Physical Exam: VS: Blood pressure is 150/76 pulse 75 respirations 18 temperature 98.6 F height is 63 inches weight is 102 pounds PE: PHYSICAL EXAMINATION: GENERAL: The patient is awake, alert, oriented, appropriate, very pleasant in [facility], patient [place] by her son. HEENT: Shows normocephalic, atraumatic. Extraocular movements are intact and symmetrical. NECK: Shows anterior throat supple without palpable lymphadenopathy noted. Swallow reflex symmetrical. CHEST: Shows normal on inspection. Breath sounds are clear bilaterally, no rales or rhonchi. HEART: Shows S1, S2 clear. No murmurs auscultated. ABDOMEN: Soft, nontender, nondistended. No palpable organomegaly is noted. BACK: Shows spine grossly in the midline. Normal-appearing cervical lordotic curvature. There is slightly increased thoracic kyphosis, some minor flattening of the lumbar lordotic curvature. Lumbar paraspinous muscles show symmetrical on inspection, on palpation shows some moderate tenderness diffusely throughout the upper, middle and lower distribution of the paraspinous muscles without specific trigger points, without radiation of pain. The patient has good rotational motion of the lumbar spine, both laterally as well as extension and flexion with significant tenderness with right and left lateral rotation greater than 10 degrees as well as full extension at 10 degrees with axial loading lumbar spine very tender acyl forward flexion of 45 degrees is performed with much less pain involved with this maneuver. EXTREMITIES: Lower extremities show deep tendon reflexes 2+ in the patellar and tendo calcaneus tendons. Motor exam is 5 on a scale of 5 with right dorsiflexion, extension, quadriceps and hamstring flexion and 5/5 on the left. Peripheral pulses are 1+ posterior tibial. No peripheral edema is noted bilaterally. Lower extremities are warm and dry. SKIN: Shows warm and dry, good turgor. No edema. No sores, rashes or bruising throughout. Procedure: Procedure: Options were discussed with the patient. Patient chart reviews her current medication regimen updated current review of systems updated today as well. We will proceed with bilateral L4-5 and L5-S1 facet medial branch blocks today with fluoroscopic guidance. Risks were discussed including but not limited to: Bleeding, infection, possibility of epidural hematoma and subsequent neurological compromise, dural puncture, headaches, spinal cord and/or nerve damage, side effects of steroid medication, and poor results regarding pain control. Patient understands and wished to proceed. She will return to clinic in approximately 2 weeks for follow-up, was counseled as return appointment, activity level, and side effect to be aware of. Medication Injected: Med Injected: Under sterile prep and drape using C-arm fluoroscopic guidance AP and lateral and oblique views, bilateral L4-5 and L5-S1 facet joint MB's injections were performed, using quinke needles with stylette's x4,, medications injected: 120 mg Depo-Medrol +4 cc 0.25% bupivacaine +2 cc contrast. Condition at discharge stable patient tolerated the procedure well and no complications. Condition at Discharge: Condition at Discharge: Condition at discharge stable, patient tolerated the procedure well and had no complications. IGOR SÁNCHEZ MD Apr 27, 2021 12:02
--- NOTE | 2021-04-27 12:03 | PDOC4 ---
Procedure Note: ICD 10 Code: ICD 10 Code: M4 7.816 M4 7.817 Procedure Note: Patient was consented for bilateral L4-5 and L5-S1 facet medial branch blocks with fluoroscopic guidance. Risks were discussed including but not limited to: Bleeding, infection, possibility of epidural hematoma and subsequent neurological compromise, dural puncture, headaches, spinal cord and/or nerve damage, side effects of steroid medication, and poor results regarding pain control. Patient understands and wished to proceed. Under sterile prep and drape using C-arm fluoroscopic guidance AP and lateral and oblique views, bilateral L4-5 and L5-S1 facet joint MB's injections were performed, using quinke needles with stylette's x4,, medications injected: 120 mg Depo-Medrol +4 cc 0.25% bupivacaine +2 cc contrast. Condition at discharge stable patient tolerated the procedure well and no complications. IGOR SÁNCHEZ MD Apr 27, 2021 12:02
== END | disposition home or self-care (01) ==
LOC: PNCL 11:58
PROVIDERS: ATTEND Anesthesiology
DX: M47.816 Spondylosis without myelopathy or radiculopathy, lumbar region (principal); M47.817 Spondylosis without myelopathy or radiculopathy, lumbosacral region; M79.18 Myalgia, other site; F17.210 Nicotine dependence, cigarettes, uncomplicated; Z79.82 Long term (current) use of aspirin; Z79.899 Other long term (current) drug therapy; Z88.0 Allergy status to penicillin; Z88.5 Allergy status to narcotic agent; Z88.8 Allergy status to other drugs, medicaments and biological substances; Z72.89 Other problems related to lifestyle
CPT/HCPCS: 64493; 64494; J1030; J1040; J3490; Q9965